=== PATIENT | female | born 1940 | race Caucasian/White ===

== ENCOUNTER → 2019-03-03 | Outpatient (CLI) | payer OTHER ==
[~2019-03-03] MED LIST: ASPIRIN EC81 M1; CO Q-1010 MG; CO Q-10100 MG PO; COZAAR; COZAAR 25 MG TA25 MG PO; CRESTOR; CRESTOR10 MG PO; FISH OIL 1,4001 EACH PO; GLUCOPHAGE500 MG PO; GLUCOSAMINE1000 MG; GLUCOSAMINE1000 MG PO; MECLIZINE 25 MG25 M1 PO; METFORMIN; MINIPRIN81 MG PO; OXYBUTYNIN; PREDNISONE50 MG PO; PREMARIN VAGI42.5 G1 TOP; SINGULAIR 10 MG10 M1 PO; SUPER B COMPLE1 EAC2 PO; TYLENOL P.M. E1 EAC3 PO; ZPAK PO
== END ==
LOC: NUC 10:27
DX: M81.0 Age-related osteoporosis without current pathological fracture (principal); Z78.0 Asymptomatic menopausal state; Z91.89 Other specified personal risk factors, not elsewhere classified; Z88.5 Allergy status to narcotic agent; Z88.2 Allergy status to sulfonamides

== ENCOUNTER → 2020-04-04 | Outpatient (CLI) | payer OTHER | LOC: SJCVC 13:40 | DX: I25.10 Atherosclerotic heart disease of native coronary artery without angina pectoris (principal); I10 Essential (primary) hypertension; E78.5 Hyperlipidemia, unspecified; I65.23 Occlusion and stenosis of bilateral carotid arteries; E11.9 Type 2 diabetes mellitus without complications; Z79.82 Long term (current) use of aspirin; Z79.84 Long term (current) use of oral hypoglycemic drugs; Z79.899 Other long term (current) drug therapy; Z82.49 Family history of ischemic heart disease and other diseases of the circulatory system; Z87.891 Personal history of nicotine dependence ==

== ENCOUNTER → 2020-09-01 | Outpatient (CLI) | payer OTHER ==
[~2020-09-01] MED LIST changes: +ASPIRIN325 PO; +CLOPIDOGREL75 MG PO; +MONTELUKAST SODI4 M1 PO; +NEURONTIN300 MG PO; +VALSARTAN320 MG PO
== END ==
LOC: SJCVCIMAG 08-30 08:47
PROVIDERS: ATTEND Internal Medicine
DX: I25.110 Atherosclerotic heart disease of native coronary artery with unstable angina pectoris (principal); I11.9 Hypertensive heart disease without heart failure; E78.5 Hyperlipidemia, unspecified; I65.23 Occlusion and stenosis of bilateral carotid arteries; E11.9 Type 2 diabetes mellitus without complications; Z79.899 Other long term (current) drug therapy; Z87.891 Personal history of nicotine dependence

== ENCOUNTER → 2020-09-06 | Outpatient (CLI) | payer OTHER ==
[~2020-09-06] MED LIST changes: -ASPIRIN325 PO; -CLOPIDOGREL75 MG PO; -MONTELUKAST SODI4 M1 PO; -NEURONTIN300 MG PO; -VALSARTAN320 MG PO
== END ==
LOC: LAB 14:58
PROVIDERS: ATTEND Internal Medicine
DX: Z01.812 Encounter for preprocedural laboratory examination (principal); Z20.828 Contact with and (suspected) exposure to other viral communicable diseases

== ENCOUNTER 2020-09-09 06:32 | Outpatient (CLI) | payer OTHER ==
[2020-09-09] VITALS (12 sets, daily range): BP systolic 113–172; BP diastolic 46–63
[~2020-09-09] VITALS: Ht 152.4 cm; Wt 58.3 kg
--- NOTE | ~2020-09-09 | EKG ---
[facility] Laure Villeg[place] [facility] [place] [address] ELECTROCARDIOGRAM REPORT Name: YUKI MCKEON Room #: 200-I [facility] M.R.#: [id number] Admission: 09/09/20 Attend Phys: Johnny Nicholson MD, Discharge: Date of : 40 Report #: [id number] THIS REPORT FOR: cc: Kvng Vera MD, Neal A. 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
[2020-09-09] MEDS ORDERED: VALSARTAN320 MG PO (07:24)
[2020-09-09] MEDS ORDERED: MONTELUKAST SODI4 M1 PO (07:28)
[2020-09-09] MEDS ORDERED: NEURONTIN300 MG PO (07:29)
--- NOTE | 2020-09-09 07:30 | EKG ---
[facility] [place] [address] ELECTROCARDIOGRAM REPORT Name: YUKI MCKEON Room #: REG [facility].#: [id number] Admission: 09/09/20 Attend Phys: Johnny Nicholson MD, Discharge: Date of : 40 Report #: [id number] THIS REPORT FOR: cc: Kvng Vera MD, Neal A. 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 : 1940 Requested By: Johnny Nicholson Order Number: [id number] MD: Johnny Nicholson Measurements Intervals [place] Rate: 68 P: 71 [place]: 197 QRS: 37 QRSD: 95 T: 74 QT: 388 QTc: 413 Interpretive Statements Sinus rhythm Poor R wave progression Baseline wander in lead(s) V1,V4 Compared to ECG 10/03/2011 07:43:40 No significant change was found Electronically Signed On 09-09-2020 7:30:20 TRANSPLANT WORKER by Johnny Nicholson [email or web address] <ELECTRONICALLY SIGNED> By: Johnny Nicholson MD, FAC 09/09/20729 6 6 Johnny Nicholson MD, FAC /EPI
--- NOTE | 2020-09-09 09:50 | CATHLAB ---
[facility] [place] [address] INVASIVE PROCEDURE REPORT Name: YUKI MCKEON Room #: REG [facility].#: [id number] Admission: 09/09/20 Attend Phys: Johnny Nicholson MD, Discharge: Date of : 40 Report #: [id number] THIS REPORT FOR: cc: Kvng Vera MD, Neal A. MD Lundgren, Craig H. MD [facility] ~ APPROVED REPORT Study performed: 09/09/2020 07:27:33 Patient Details Patient Status: Out-Patient Room #: The patient is a 80 year-old female Event Personnel Johnny Nicholson Journeyman Plumber, Nico Schwartz RN RN, Tonia Wesley, Gurpreet Cuevas RTR Scrub, Gayatri Winn RTR Monitor Procedures Performed Art Access - R femoral artery* Left Heart Cath w/or w/o Coronaries [id number] [facility] w/wo Plasty Single RCA [id number] Initial Mod Sed Same Phys/QHP Gr5y 534355 85083 Mod Sed Same Phys/QHP Ea 736537 Hemostasis w/ Mynx Indication Chest pain Procedure Narrative The patient was brought electively to the Cardiac Catheterization Laboratory and was prepped and draped in a sterile manner. The Right Groin^ was infiltrated with 1% Lidocaine subcutaneous anesthesia. A PINNACLE 6FR Sheath #[id number] sheath was inserted into the RFA^. Coronary angiography was performed using coronary diagnostic catheters. The right coronary system was accessed and visualized with a JR4 catheter. The left coronary system was accessed and visualized with a JL4 catheter. The left ventricle was accessed and visualized with a PIGTAIL catheter. Left ventricular/Aortic Valve gradient assessed via catheter pullback. Left ventriculogram was performed in 30 degree projection. Closure device was deployed with a 6 Fr MYNXGRIP 6/7F #[id number]. The patient tolerated the procedure well and there were no complications associated with the procedure. There was no hematoma. [facility] [address] [place] [address] INVASIVE PROCEDURE REPORT Name: YUKI MCKEON Room #: [facility]#: [id number] Admission: 09/09/20 Attend Phys: Johnny Nicholson, Discharge: Date of : 40 Report #: [id number] Intraoperative Conscious Sedation Sedation start time: 758 Case end Time: 854 Fentanyl 50 mcg Versed 1 mg Fluoro Time: 5.80 minutes Dose: DAP 6226.00 cGycm2 858 mGy Contrast Type and Amount: Visipaque 190 ml Coronary Angiography The patient's coronary anatomy is co- dominant. Diagnostic Cath Left Main Normal left main LAD Normal left anterior descending Diagonal 1 Normal, small first diagonal branch Diagonal 2 Normal, second diagonal branch Circumflex Codominant circumflex with mild 10-20% proximal plaquing OM1 First marginal branch angiographically normal L PDA Small PDA, angiographically normal Right Coronary Previously placed mid right coronary stent with mild 10-20% intrastent plaquing 85% mid right coronary stenosis. Normal artery beyond this stenosis Left Ventriculography The left ventricle is normal in size with normal contractility. The left ventricular ejection fraction is estimated to be 65-70%. Left ventricular wall motion abnormalities are not present. There is no mitral insufficiency. Hemodynamics The aortic pressure is 152/41 mmHg with a mean of 85 mmHg. The left ventricular pressure is 159/4 mmHg with a mean of mmHg. The left ventricular end diastolic pressure is 19 mmHg. PCI Technique Lesion Anticoagulation was achieved with Heparin, Integrilin. Patient was preloaded with Plavix. Percutaneous coronary intervention was performed on the proximal right coronary artery. The lesion stenosis prior to intervention was 85-90% with KASSIE 3 flow. A LAUNCHER 6FR JR 4 #[id number] Guide Catheter was used to engage the right coronary ostium. A Luge Wire .014 x 182CM #[id number] Interventional Guidewire was used to cross the lesion. BALLOON DILATION [facility] [place] [address] INVASIVE PROCEDURE REPORT Name: BRISEIDA MCKEONYOANNA Walsh Room #: REG [facility]#: [id number] Admission: 09/09/20 Attend Phys: Johnny Nicholson, Discharge: Date of : 40 Report #: [id number] A Balloon catheter Euphora RX 2.5 x 12 #[id number] was inserted and inflated up to 8.00atm for 35seconds. Additional Inflation: 16.00atm for 36seconds. STENT DEPLOYMENT A drug-eluting stent RESOLUTE JEMIMA RX 2.5 X 12 #[id number] was inserted and inflated up to 16atm for 20seconds. POST STENT DEPLOYMENT BALLOON DILATION A Balloon catheter TREK NC RX 2.5 X 12 #[id number] was inserted and inflated up to 20.00atm for 34seconds. Final angiography reveals 0 % stenosis with KASSIE 3 flow. Conclusion 1. Normal global and regional left ventricular systolic function. EF 65-70% 2. Normal left main 3. Normal LAD, mild proximal plaquing in a large codominant circumflex 4. Previously placed mid right coronary stent widely patent. Severe 85% mid right coronary stenosis beyond the stent, stented with a 2.5 x 12mm Resolute, post-dilated to 2.7mm <ELECTRONICALLY SIGNED> By: Johnny Nicholson MD, [facility] 09/09/2050 9 9 Johnny Nicholson MD, FAC /INF
[2020-09-09] MEDS ORDERED: CLOPIDOGREL75 MG PO (13:05)
[2020-09-09] MEDS ORDERED: ASPIRIN325 PO (13:05)
--- NOTE | 2020-09-09 14:39 | EKG ---
[facility] [place] [address] ELECTROCARDIOGRAM REPORT Name: YUKI MCKEON Room #: 200-I [facility] M..#: [id number] Admission: 09/09/20 Attend Phys: Johnny Nicholson MD, Discharge: Date of : 40 Report #: [id number] THIS REPORT FOR: cc: Kvng Vera MD, Neal A. 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 : 1940 Requested By: Johnny Nicholson Order Number: [id number] MD: Julian Matos Measurements Intervals [place] Rate: 96 P: 59 [place]: 208 QRS: 38 QRSD: 94 T: 96 QT: 351 QTc: 444 Interpretive Statements Sinus rhythm Borderline prolonged [place] interval Probable left atrial enlargement Nonspecific T abnormalities, lateral leads Baseline wander in lead(s) V1 Compared to ECG 09/09/2020 07:27:50 T-wave abnormality now present Poor R-wave progression no longer present Electronically Signed On 09-09-2020 14:39:24 TECHNICAL LABORATORY ASST by Julian Matos [email or web address] <ELECTRONICALLY SIGNED> By: Julian Matos MD, [facility] 09/09/20 1439 1020 1020 Julian Matos MD, [facility] /EPI
--- NOTE | 2020-09-09 18:12 | NUR ---
PT CARE ASSUMED AT 1045. ASSESSMENTS CHARTED. MEDICATION CHARTED. RAC IV. SINUS RHYTHM. LT HEART CATH; RT GROIN; MYNX; 1 STENT TO MID RCA. HEMOSTASIS AT 0900; BEDREST OVER AT 1200. PRESCRIPTIONS ON CHART FOR TOMORROW'S DISCHARGE. AMIODARONE GIVEN IN CATH HOLDING FOR TRANSIENT AFIB.
[2020-09-10 00:04] VITALS: BP 141/46
--- NOTE | 2020-09-10 03:22 | NUR ---
ASSUMED CARE OF PATIENT AT 1900. ASSESSMENTS UNREMARKABLE. PATIENT HAD NO COMPLAINTS OF PAIN. RIGHT GROIN INCISION SITE IS C/D/I. PULSES PALPABLE. PATIENT PROGRESSING WELL TOWARDS CARE PLAN GOALS
[2020-09-10 03:50] VITALS: BP 124/51
[2020-09-10 04:50] LABS: HEMATOCRIT 35.9 % (37.0-47.0); HEMOGLOBIN 11.8 gm/dL (12.0-15.0); MCH 30.7 pg (26.0-34.0); MCHC 32.8 g/dL (28.0-37.0); MCV 93.7 fL (80.0-100.0); RBC 3.84 mil/uL (4.20-5.00); RDW 14.1 % (10.5-14.5)
[2020-09-10 05:02] LABS: ALBUMIN 3.3 g/dL (3.4-5.0); CALCIUM 8.7 mg/dL (8.5-10.1); POTASSIUM 4.1 mmol/L (3.5-5.1); TOTAL BILIRUBIN 0.3 mg/dL (0.2-1.0); TROPONIN-I 0.07 ng/mL (<0.06)
[2020-09-10 07:20] VITALS: BP 144/52
[2020-09-10 09:48] VITALS: BP 144/52
--- NOTE | 2020-09-10 10:20 | NUR ---
ASSUMED CARE AT SHIFT CHANGE, ALERT AND ORIENTED X4. DENIES ANY CP, VSS AND SR. DISCHARGE AND MEDICATION INSTRUCTION GIVEN AND PATIENT VERBALIZED UNDERSTANDING.
--- NOTE | 2020-09-13 09:42 | D ---
[facility] [place] [address] DISCHARGE SUMMARY Name: YUKI MCKEON Room #: [facility]P [facility]#: [id number] Admission: 09/09/20 Attend Phys: Johnny Nicholson MD, Discharge: 09/10/20 Date of : 40 Report #: [id number] THIS REPORT FOR: cc: Kvng Vera MD, Neal A. MD Lundgren,Johnny Anderson MD [facility] ~ THIS REPORT FOR: //name// CC: Johnny Vera DATE OF SERVICE: 09/09/2020 DISCHARGE DIAGNOSES: 1. Unstable angina. 2. 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 3. Hypertension. 4. Dyslipidemia. 5. Diabetes. 6. History of Cydls-Itasdgdqh-Nnqee with remote radiofrequency ablation. HISTORY OF PRESENT ILLNESS: The patient presented with midsternal chest tightness and jaw pain with associated shortness of breath. This was reminiscent to her pre-stent angina from a number of years ago. A pharmacologic stress study was nonischemic in the office, although her symptoms were so suggestive that coronary angiography was undertaken. This demonstrated basically normal left main, LAD and circumflex. The right coronary exhibited an 85-90% midvessel stenosis that was stented with a 2.5 x 12 mm Resolute medicated stent, postdilated to 2.7 mm. She was treated with aspirin, Plavix, heparin and Integrilin in the periprocedural setting. She did develop transient atrial fibrillation, probably catheter-induced during the procedure. No prior history of this. She was ambulating with excellent groin hemostasis at the time of discharge. DISCHARGE MEDICATIONS: Include aspirin, gabapentin 300 mg daily, metformin 500 mg 3 times a day, Dulera inhaler, Singulair 10 mg daily, rosuvastatin 10 mg daily, valsartan 320 mg daily and a multivitamin. DISCHARGE ACTIVITY: As instructed post-catheterization. Discharge medicines were reconciled. DISCHARGE DIET: Heart healthy, carb-controlled diet. Discharge arrangements were made for outpatient cardiac rehabilitation. Follow [facility] [address] [place] [address] DISCHARGE SUMMARY Name: YUKI MCKEON Nico Room #: [facility]P [facility]#: [id number] Admission: 09/09/20 Attend Phys: Johnny Nicholson MD, Discharge: 09/10/20 Date of : 40 Report #: [id number] up with myself in 1 month. Follow up with Dr. Kvng Vera as previously arranged. DISCHARGE CONDITION: Stable and improved. <ELECTRONICALLY SIGNED> By: Johnny Nicholson MD, [facility] 09/13/20 0942 1329 1342 Johnny Nicholson MD, FACC /nt
== END 2020-09-10 11:05 | disposition home or self-care (01) ==
LOC: CATH 06:32 → 2N 08:33 → CATH 09:16
PROVIDERS: ATTEND Internal Medicine
DX: R07.9 Chest pain, unspecified (principal); I25.10 Atherosclerotic heart disease of native coronary artery without angina pectoris; I10 Essential (primary) hypertension; E11.9 Type 2 diabetes mellitus without complications; Z98.890 Other specified postprocedural states; Z79.899 Other long term (current) drug therapy; Z87.891 Personal history of nicotine dependence; Z88.2 Allergy status to sulfonamides
CPT/HCPCS: 10797

== ENCOUNTER → 2020-09-19 | Outpatient (CLI) | payer OTHER ==
[~2020-09-19] MED LIST changes: +ASPIRIN325 PO; +CLOPIDOGREL75 MG PO; +MONTELUKAST SODI4 M1 PO; +NEURONTIN300 MG PO; +VALSARTAN320 MG PO
== END ==
LOC: SJCVCIMAG 13:14
PROVIDERS: ATTEND Internal Medicine
DX: I65.23 Occlusion and stenosis of bilateral carotid arteries (principal); R19.09 Other intra-abdominal and pelvic swelling, mass and lump; Z90.710 Acquired absence of both cervix and uterus; Z79.899 Other long term (current) drug therapy

== ENCOUNTER → 2020-10-12 | Outpatient (CLI) | payer OTHER | LOC: SJCVCIMAG 08:28 | PROVIDERS: ATTEND Internal Medicine | DX: I25.10 Atherosclerotic heart disease of native coronary artery without angina pectoris (principal); E78.5 Hyperlipidemia, unspecified; I10 Essential (primary) hypertension; I65.23 Occlusion and stenosis of bilateral carotid arteries; E11.9 Type 2 diabetes mellitus without complications; Z79.82 Long term (current) use of aspirin; Z79.899 Other long term (current) drug therapy; Z87.891 Personal history of nicotine dependence ==

== ENCOUNTER → 2021-01-04 | Outpatient (CLI) | payer OTHER | LOC: SJCVC 14:00 | PROVIDERS: ATTEND Internal Medicine | DX: I25.10 Atherosclerotic heart disease of native coronary artery without angina pectoris (principal); E78.5 Hyperlipidemia, unspecified; I10 Essential (primary) hypertension; I48.0 Paroxysmal atrial fibrillation; I65.23 Occlusion and stenosis of bilateral carotid arteries; E11.9 Type 2 diabetes mellitus without complications; E78.00 Pure hypercholesterolemia, unspecified; Z79.899 Other long term (current) drug therapy; Z79.82 Long term (current) use of aspirin; Z79.84 Long term (current) use of oral hypoglycemic drugs; Z88.5 Allergy status to narcotic agent; Z88.2 Allergy status to sulfonamides; Z87.891 Personal history of nicotine dependence ==

== ENCOUNTER → 2021-01-25 | Outpatient (CLI) | payer OTHER | LOC: LAB 10:37 | PROVIDERS: ATTEND Family Medicine | DX: J02.9 Acute pharyngitis, unspecified (principal); R05 Cough; R51.9 Headache, unspecified; R06.02 Shortness of breath; Z20.822 Contact with and (suspected) exposure to COVID-19 ==

== ENCOUNTER → 2021-01-30 | Outpatient (CLI) | payer OTHER ==
--- NOTE | ~2021-01-30 | PFR/MVV ---
[facility] [place] [address] PULMONARY FUNCTION MVV/REPORT Name: YUKI MCKEON Room #: [facility]#: [id number] Admission: 01/30/21 Attend Phys: Johnny Nicholson MD, [facility] Discharge: Date of : 40 Report #: [id number] THIS REPORT FOR: //name// COPIES FOR: AGE: 80 SEX/RACE: F/C >> SPIROMETRY: (BTPS) Height: 61 in cm Weight: 124 lbs kg Exam Date: 01/30/21 PRE-RX POST-RX PRED BEST %PRED BEST %PRED %CHG FVC LITERS . 2.24 . 2.40 . 107 . 2.47 . 110 . 3 FEV1 LITERS . 1.50 . 1.47 . 98 . 1.43 . 95 . -3 FEV1/FVC % . 70 . 61 . 87 . 58 . 83 . 5 LGD49-67% L/Sec . 1.81 . 0.54 . 30 . 0.50 . 28 . -8 PEF L/SEC . 4.85 . 4.03 . 83 . 3.54 . 73 . -12 FEF50/FIF50 UNITLESS . <1.00 . 1.16 . . 0.72 . . -38 MVV L/Min . 76 . 32 . 42 f 1/Min . . 160 . >> LUNG VOLUMES: (BTPS) PRE-RX POST-RX PRED AVG %PRED AVG %PRED %CHG VC Liters . 2.24 . 2.40 . 107 . . . TLC Liters . 4.13 . 6.69 . 162 . . . RV Liters . 1.78 . 4.28 . 241 . . . RV/TLC % . 43 . 64 . [address] . . . [address] Liters . 2.54 . 4.68 . 184 . . . FRC N2 Liters . 2.54 . . . . . ERV Liters . 0.76 . 0.40 . 53 . . . IC Liters . 1.51 . 1.82 . 120 . . . >> DIFFUSION: DLCO ml/Min/mmHg . 15.0 . 13.9 . 92 . . . DL [place] ml/Min/mmHg . 15.0 . 13.9 . 92 . . . DLCO/VA ml/Min/mmHg . 3.28 . 5.39 . 164 . . . VA Liters . . 2.58 . . . . [address] [address] PULMONARY FUNCTION MVV/REPORT Name: YUKI MCKEON Nico Room #: [facility]#: [id number] Admission: 01/30/21 Attend Phys: Johnny Nicholson MD, [facility] Discharge: Date of : 40 Report #: [id number] COMMENTS: COMMENTS: >> RESISTANCE: PRE-RX PRED AVG %PRED Raw Total cmH20/L/Sec . . 3.73 . Raw Insp cmH20/L/Sec . . 4.76 . Raw Exp cmH20/L/Sec . . 6.47 . Raw cmH20/L/Sec . 1.52 . 2.61 . 171 Gaw L/Sec/cmH20 . 0.609 . 0.384 . 63 sRaw cmH20 Sec . 3.86 . 13.35 . 346 sGaw l/cmH20 Sec . 0.259 . 0.075 . 29 Vtq Liters . . 5.12 . # = OUTSIDE 95% CONFIDENCE INTERVAL CALIBRATION: PRED: 3.00 ACTUAL: EXP 3.01 INSP 3.02 [facility]-10-06 [facility]05 N-1804-4 >> INTERPRETATION/IMPRESSION: DATE OF SERVICE: 01/30/2021 SPIROMETRY: FEV1 is 1.47 liters (98%), FVC is 2.40 liters (107%). FEV1/FVC ratio is 61%. Post-bronchodilator therapy which has no significant response. LUNG VOLUMES: Total lung capacity is 6.69 liters (162%). RV is 4.28 liters (241%). Diffusing capacity is 92%. IMPRESSION: The patient's pulmonary function tests are consistent with mild obstructive airflow defect with moderate hyperinflation and severe air trapping. Diffusing capacity is normal. There was no significant response to bronchodilator therapy. By: Conrado Barbour MD /nt
== END ==
LOC: PUL 09:46
PROVIDERS: ATTEND Internal Medicine
DX: J44.9 Chronic obstructive pulmonary disease, unspecified (principal); R06.02 Shortness of breath

== ENCOUNTER → 2021-07-12 | Outpatient (CLI) | payer OTHER | LOC: SJCVC 14:12 | PROVIDERS: ATTEND Internal Medicine | DX: I25.10 Atherosclerotic heart disease of native coronary artery without angina pectoris (principal); I10 Essential (primary) hypertension; I48.0 Paroxysmal atrial fibrillation; E78.5 Hyperlipidemia, unspecified; I65.23 Occlusion and stenosis of bilateral carotid arteries; J45.40 Moderate persistent asthma, uncomplicated; E11.9 Type 2 diabetes mellitus without complications; Z82.49 Family history of ischemic heart disease and other diseases of the circulatory system; Z79.82 Long term (current) use of aspirin; Z79.84 Long term (current) use of oral hypoglycemic drugs; Z79.899 Other long term (current) drug therapy; Z88.2 Allergy status to sulfonamides; Z88.5 Allergy status to narcotic agent; Z87.891 Personal history of nicotine dependence ==